=== PATIENT | male | born 1955 | race Hispanic/Latino ===

== ENCOUNTER 2017-12-02 13:59 | Emergency (ER) | payer BC ==
[~2017-12-02] VITALS: Ht 162.6 cm; Wt 89.4 kg
== END 2017-12-02 14:50 | disposition left against medical advice (07) ==
LOC: FSED 13:59
DX: S43.402A Unspecified sprain of left shoulder joint, initial encounter (principal); X50.0XXA Overexertion from strenuous movement or load, initial encounter; Y92.89 Other specified places as the place of occurrence of the external cause; Y99.0 Civilian activity done for income or pay; I10 Essential (primary) hypertension; F17.210 Nicotine dependence, cigarettes, uncomplicated